=== PATIENT | female | born 1960 | race Caucasian/White ===

== ENCOUNTER → 2017-12-04 08:49 | Outpatient (CLI) | payer OTHER, SELFPAY ==
[2017-12-04 08:57] LABS: Bacteria 0 SEEN /hpf (None Seen); Mucous, Urine 0 SEEN /hpf (<or=2+)
--- NOTE | 2017-12-04 08:57 | EKG12_ITS ---
Test Reason : OP..RHYTHM Blood Pressure : / mmHG Vent. Rate : 082 BPM Atrial Rate : 082 BPM P-R Int : 124 ms QRS Dur : 076 ms QT Int : 372 ms P-R-T Axes : 039 017 047 degrees QTc Int : 434 ms Normal sinus rhythm Normal ECG Confirmed by JIAN SETH, DEYVI ([id number]), advertising editor JALIL SINGLETON ([id number]) on 12/06/2017 2:23:17 PM Referred By: Sudhir Roblero Confirmed By:DEYVI VILLAR MD
[2017-12-04 10:03] LABS: Color, Urine Yellow (Yellow); Glucose, Dipstick Normal (Normal); Ketone-Dipstick Negative (Negative); Leukocyte Esterase-Dipstick 25 /ul (Negative); Nitrite-Dipstick Negative (Negative); Occult Blood-Urine 10 /ul (Negative); Protein-Dipstick Negative (Negative); Specific Gravity, Urine 1.015 (1.002-1.030); Urine Bilirubin Dipstick Negative (Negative); Urine Clarity Clear (Clear); Urine Urobilinogen Normal (Normal)
[2017-12-04 10:13] LABS: Red Blood Cells-Urine 0-5 SEEN /hpf (0-5); Squamous Epithelial Cells - UA 0-5 SEEN /hpf (5-10); White Blood Cells 0-5 SEEN /hpf (0-5)
[2017-12-04 10:25] LABS: Anion Gap 6 (5-15); BUN 15 mg/dL (7-18); BUN/Creat Ratio 20.4 RATIO (10-20); Calcium,Total 9.3 mg/dL (8.5-10.1); Chloride 105 mmol/L (98-107); Cholesterol 203 mg/dL (200); Creatinine, Serum 0.74 mg/dL (0.55-1.02); EST Glomerular Filtration Rate 87 mL/min (>60); Est Glom Filt Rate - Afr Amer 105 mL/min (>60); Glucose 94 mg/dL (74-106); High Density Lipoprotein 88 mg/dL; Potassium 4.3 mmol/L (3.5-5.1); Sodium Level 141 mmol/L (136-145); Triglycerides 70 mg/dL; Very Low Density Lipoprotein 14 mg/dL (5-40)
[2017-12-04 10:34] LABS: Hemoglobin A1c 5.9 % (4.2-6.3)
[2017-12-04 10:40] LABS: Microalbumin,Random Urine 9.8 mg/L (NO RANGE EST.); Microalbumin:Creatinine Ratio 8.2 mg/g CRE (<30 mg/g CRE)
== END ==
PROVIDERS: Family Provider Internal Medicine; PCP Internal Medicine; Referring Provider Internal Medicine; Visit Provider Internal Medicine
DX: R07.9 Chest pain, unspecified (principal); R73.03 Prediabetes; N28.9 Disorder of kidney and ureter, unspecified
CPT/HCPCS: 36415; 80048; 80061; 81001; 82043; 82570; 83036; 93005

== ENCOUNTER → 2018-09-06 | Outpatient (CLI) | payer BC, SELFPAY ==
[2018-09-06 11:18] VITALS: BMI 30.1
[2018-09-06 12:49] LABS: Absolute Lymphocyte Count 1.25 X10^3/ul (0.83-4.51); Absolute Neutrophil Count 5.9 X10^3/uL (2.0-7.7); Basophil# 0.01 X10^3/uL; Basophil% 0.1 % (0-1); Eosinophil# 0.06 X10^3/uL; Eosinophils% 0.8 % (0-5); Hematocrit 40.6 % (37-47); Hemoglobin 12.9 g/dl (12.0-15.0); Lymphocyte # 1.25 X10^3/ul (4.0); Lymphocyte % 16.4 % (19-41); Mean Corp Hgb Conc 31.8 g/gl (32-36); Mean Corpuscular Hgb 28.4 pg (27.0-32.0); Mean Corpuscular Volume 89.4 fL (81-99); Mean Platelet Vol. 10.7 fl (6.2-12.0); Monocyte# 0.42 X10^3/uL; Monocyte% 5.5 % (0-10); Neutrophil # 5.86 X10^3/uL (2.7-7.7); Neutrophil % 76.8 % (47-70); Platelet Count 335 K/mm3 (150-450); RBC Distribution Width CV 13.6 % (11.6-14.6); RBC Distribution Width SD 43.5 fl (35.1-43.9); Red Blood Count 4.54 M/mm3 (4.2-5.4); White Blood Count 7.6 K/mm3 (4.4-11.0)
[2018-09-06 12:56] LABS: POSITIVE COUNT NO; POSITIVE DIFFERENTIAL NO; POSITIVE MORPHOLOGY NO
[2018-09-06 13:00] LABS: AST(SGOT) 18 U/L (15-37); Alanine Aminotransfer ALT/SGPT 30 U/L (13-56); Albumin, Serum 3.7 g/dL (3.2-5.0); Alkaline Phosphatase 101 U/L (45-117); BUN 17 mg/dL (7-18); BUN/Creat Ratio 21.5 RATIO (10-20); Calcium,Total 9.8 mg/dL (8.5-10.1); Chloride 104 mmol/L (98-107); Creatinine, Serum 0.79 mg/dL (0.55-1.02); EST Glomerular Filtration Rate 80 mL/min (>60); Est Glom Filt Rate - Afr Amer 96 mL/min (>60); Globulin 3.6 g/dL (2.2-4.2); Glucose 117 mg/dL (74-106); Potassium 4.7 mmol/L (3.5-5.1); Protein, Total 7.3 g/dL (6.4-8.2); Sodium Level 139 mmol/L (136-145)
[2018-09-06 13:01] LABS: Anion Gap 3 (5-15)
== END | disposition home or self-care (01) ==
LOC: BIMLAB 11:48
PROVIDERS: Family Provider Internal Medicine; PCP Internal Medicine; Visit Provider Internal Medicine
DX: R53.81 Other malaise (principal); B02.9 Zoster without complications
CPT/HCPCS: 36415; 80053; 85025

== ENCOUNTER → 2018-09-14 | Outpatient (CLI) | payer BC, SELFPAY ==
[2018-09-13 16:16] VITALS: BMI 30.1
[2018-09-14 09:53] LABS: Lyme Ab Screen Interpretation REF LAB
[2018-09-16 11:31] LABS: Lyme Scn Total Ab w/Rflx <0.91 ISR (0.00-0.90)
== END | disposition home or self-care (01) ==
LOC: BIMLAB 09:52
PROVIDERS: Family Provider Internal Medicine; PCP Internal Medicine; Visit Provider Family Medicine
DX: R21 Rash and other nonspecific skin eruption (principal)
CPT/HCPCS: 36415; 86618

== ENCOUNTER 2018-11-28 03:58 | Emergency (ER) | payer BC, SELFPAY ==
[2018-10-18 11:16] VITALS: BMI 30.1
[2018-11-28 04:00] VITALS: BP 166/64; PULSE 83; RESP 18; TEMP 36.9; O2SAT 98; BMI 33.3
[2018-11-28 04:06] VITALS: TEMP 36.9
--- NOTE | 2018-11-28 04:08 | ED.VIS.GEN ---
History of Present Illness Chief Complaint: Abd Pain Informant: Patient Onset: Yesterday Context: Gradual Onset Timing: Continuous Current Severity: Moderate Maximum Severity: Moderate Narrative: The patient presents to the emergency department with right upper quadrant abdominal pain, nausea, and vomiting. The patient states that she has a history of gallbladder problems. She states yesterday afternoon, she went with a friend. She states that she ate baked spaghetti and cheesecake. About 2 hours later, she began have pain in her right upper quadrant. Since then it is worsened. She states now into her right shoulder and across her abdomen. She describes chills and sweats. She is also been nauseated. She does have a history of prior hysterectomy, but denies any other abdominal surgery. The patient was recently treated for Lyme disease and was on antibiotics for a long period of time, but has been off of them for about 2 months. Prior similar symptoms: No Recent Illness/Hospitalization: No Past Medical History - Allergies and Home Meds Allergies/Adverse Reactions: Allergies levofloxacin [From Levaquin] Allergy (Unknown, Verified 11/28/18 03:59) Unknown morphine Allergy (Verified 11/28/18 03:59) Rash Primary Care Physician: Sudhir Roblero MD [Primary Care Provider] - Prior records reviewed: Yes Surgical History: hysterectomy Smoking Status: Never smoker Review of Systems General: Denies: Chills, Fever, Sweats Eyes: Denies: Visual changes - bilaterally, Diplopia ENT: Denies: Rhinorrhea, Sore throat Cardiovascular: Denies: Chest pain, Palpitations Respiratory: Denies: Dyspnea, Cough, Dyspnea on exertion Gastrointestinal: Reports: Abdominal pain, Nausea. Denies: Vomiting, Diarrhea, Melena, Hematochezia Genitourinary: Denies: Dysuria, Hematuria, Frequency Musculoskeletal: Denies: Back pain, Extremity Pain Skin: Denies: Rash, Wounds Neurological: Denies: Headache, Weakness, Numbness Physical Exam Vital Signs/Narrative: Vital Signs Temp Pulse Resp BP Pulse Ox 11/28/18 04:06 98.4 F 11/28/18 04:00 98.4 F 83 18 166/64 H 98 Inital Vital Signs reviewed: Yes General: Well nourished, Well developed, No Acute Distress Head: Normocephalic, Atraumatic Eyes: Perrl, EOMI ENT: Moist mucous membranes, No rhinorrhea Neck: Supple, Nontender Cardiovascular: Regular rate, Regular rhythm, No murmurs Respiratory: No distress, CTA bilaterally, Chest nontender Abdomen: Soft, Nondistended, Normal bowel sounds, Tender Back: Nontender, Normal Inspection Extremities: Nontender, No edema Skin: Normal color, No rash Neurological: Alert, Oriented x3, Cranial nerves II-XII grossly intact, Normal Strength, Normal Sensation Psychological: Normal affect, Normal Mood Diagnostic/Tx/Re-eval Clinical Impression(s) from Imaging Studies Abdomen/Pelvis CT 11/28/18 04:31 IMPRESSION: There is a cyst in the right kidney measures 1.4 cm. Electronically Signed: Guillermo Fry, at 5:14 EDT Tel , Service support , Abnormal Lab Results 11/28/18 11/28/18 11/28/18 04:05 04:05 04:47 WBC 9.3 RBC 4.44 Hgb 12.9 Hct 39.9 MCV 89.9 MCH 29.1 MCHC 32.3 RDW Std Deviation 41.2 RDW Coeff of Pepito 12.5 Plt Count 303 MPV 10.5 Immature Gran % (Auto) 0.200 Neut % (Auto) 81.0 H Lymph % (Auto) 12.5 L [place] % (Auto) 4.6 Eos % (Auto) 1.3 Baso % (Auto) 0.4 Absolute Neuts (auto) 7.5 Absolute Lymphs (auto) 1.16 Nucleated RBC % 0 Sodium 138 Potassium 4.2 Chloride 106 Carbon Dioxide 25.0 Anion Gap 7 BUN 14 Creatinine 0.82 Estim Creat Clear Calc 62.62 Est GFR (MDRD) Af Amer 93 Est GFR (MDRD) Non-Af 77 BUN/Creatinine Ratio 17.2 Glucose 146 H Calcium 9.6 Total Bilirubin 0.30 Direct Bilirubin 0.08 AST 21 ALT 28 Alkaline Phosphatase 100 Total Protein 7.4 Albumin 3.8 Globulin 3.6 Lipase 106 Urine Color Yellow Urine Clarity Clear Urine pH 5.0 Ur Specific [place] 1.025 Urine Protein Negative Urine Glucose (UA) Normal Urine Ketones 5 H Urine Occult Blood 25 H Urine Nitrite Negative Urine Bilirubin Negative Urine Urobilinogen Normal Ur Leukocyte Esterase 25 H Urine RBC 0 SEEN Urine WBC 0-5 SEEN Ur Squamous Epith Cells 25-50 SEEN Urine Bacteria 0 SEEN Urine Mucus 3+ - Medical Decision Making The patient symptoms do seem consistent with biliary colic. Her pain started after she ate cheesecake and a heavy meal. He does have some pain in the right upper quadrant but no definitive Pappas sign. IV was established. She was given analgesics and antiemetics. Her pain was markedly improved. Screening labs including LFTs are relatively unremarkable. Her urine does not show evidence of infection. I did obtain a CT of abdomen and pelvis. There was no evidence of acute intra-abdominal process. On reevaluation, the patient is pain-free. She has had these bouts with increasing frequency and duration. I do feel that outpatient surgical follow-up would be appropriate. The patient is already established with Dr. Robles. She will be given analgesics and antiemetics and will follow-up as an outpatient. She was counseled on concerning symptoms and reasons to return. Impression 1. Biliary colic ED Disposition - Plan for ED Patient: Instructions: BILIARY COLIC with Gallstone (Confirmed) Prescriptions: Hydrocodone Bitart/Apap 5-325 [[place] 5MG-325MG] 1 tab PO Q6H PRN PRN 3 Days #10 tab PRN Reason: Pain Prescription Printed Ondansetron [Zofran Odt] 4 mg PO Q8H PRN PRN #10 tab PRN Reason: Nausea Prescription Printed Referrals: Lorena Robles MD [STAFF PHYSICIAN] -
[2018-11-28] MEDS: Ketorolac 30 MG/ML Syringe IV (04:15)
[2018-11-28] MEDS: 0.9% Normal Saline 1,000 ML 1000 ML IV (04:15)
[2018-11-28] MEDS: fentaNYL 100 MCG/2 ML Ampul 25 MCG IV (04:15)
[2018-11-28] MEDS: Ondansetron 4 MG/2 ML Vial IV (04:15)
[2018-11-28 04:18] LABS: Absolute Lymphocyte Count 1.16 X10^3/uL (0.83-4.51); Absolute Neutrophil Count 7.5 X10^3/uL (2.0-7.7); Basophil# 0.04 X10^3/uL; Basophil% 0.4 % (0-1); Eosinophil# 0.12 X10^3/uL; Eosinophils% 1.3 % (0-5); Hematocrit 39.9 % (37-47); Hemoglobin 12.9 g/dL (12.0-15.0); Lymphocyte # 1.16 X10^3/ul (4.0); Lymphocyte % 12.5 % (19-41); Mean Corp Hgb Conc 32.3 g/dL (32-36); Mean Corpuscular Hgb 29.1 pg (27.0-32.0); Mean Corpuscular Volume 89.9 fL (81-99); Mean Platelet Vol. 10.5 fl (6.2-12.0); Monocyte# 0.43 X10^3/uL; Monocyte% 4.6 % (0-10); NRBC Flagged by Analyzer 0 % (0-5); Neutrophil # 7.49 X10^3/uL (2.7-7.7); Platelet Count 303 K/mm3 (150-450); RBC Distribution Width CV 12.5 % (11.6-14.6); RBC Distribution Width SD 41.2 fl (35.1-43.9); Red Blood Count 4.44 M/mm3 (4.2-5.4); White Blood Count 9.3 K/mm3 (4.4-11.0)
[2018-11-28 04:31] LABS: AST(SGOT) 21 U/L (15-37); Alanine Aminotransfer ALT/SGPT 28 U/L (13-56); Albumin, Serum 3.8 g/dL (3.2-5.0); Alkaline Phosphatase 100 U/L (45-117); Anion Gap 7 (5-15); BUN 14 mg/dL (7-18); BUN/Creat Ratio 17.2 RATIO (10-20); Bilirubin, Direct 0.08 mg/dL (0.00-0.30); Calcium,Total 9.6 mg/dL (8.5-10.1); Chloride 106 mmol/L (98-107); Creatinine, Serum 0.82 mg/dL (0.55-1.02); EST Glomerular Filtration Rate 77 mL/min (>60); Est Glom Filt Rate - Afr Amer 93 mL/min (>60); Estimated Creatinine Clearance 62.62 ml/min; Globulin 3.6 g/dL (2.2-4.2); Glucose 146 mg/dL (74-106); Lipase 106 U/L (73-393); Potassium 4.2 mmol/L (3.5-5.1); Protein, Total 7.4 g/dL (6.4-8.2); Sodium Level 138 mmol/L (136-145)
--- NOTE | 2018-11-28 04:31 | CT_ITS ---
STUDY: CT ABDOMEN AND PELVIS WITH CONTRAST REASON FOR EXAM: Female, 58 years old. Right upper quadrant pain RADIATION DOSAGE (If Supplied By Facility): CTDIvol = ( 16.04 ) mGy, DLP = ( 1062.59 ) mGycm TECHNIQUE: Transaxial images were obtained from the dome of the diaphragm to the symphysis pubis without oral contrast. IV 100mL Isovue-300 100ML was administered. Sagittal and coronal images were reconstructed. Individualized dose optimization techniques were used for this CT. COMPARISON: None. FINDINGS: The visualized lung bases are unremarkable. The visualized portions of the heart are within normal limits. Normal liver. Normal gallbladder and extrahepatic biliary system. Normal spleen. Normal pancreas. Normal bilateral adrenal glands. There is a cyst in the right kidney measures 1.4 cm. Normal left kidney. Normal visualized stomach. Normal small intestine. Normal colon. The appendix is visualized and appears normal. Normal abdominal aorta. Normal inferior vena cava. Normal retroperitoneum. Normal urinary bladder. Normal abdominal wall. Normal osseous structures. CT/Abdomen/Pelvis W IV Cont ONLY IMPRESSION: There is a cyst in the right kidney measures 1.4 cm. Electronically Signed: Guillermo Fry, at 5:14 EDT Tel , Service support ,
[2018-11-28 04:55] LABS: Bacteria 0 SEEN /hpf (None Seen); Red Blood Cells-Urine 0 SEEN /hpf (0-5)
[2018-11-28 04:56] LABS: Color, Urine Yellow (Yellow); Glucose, Dipstick Normal (Normal); Ketone-Dipstick 5 mg/dl (Negative); Leukocyte Esterase-Dipstick 25 /ul (Negative); Nitrite-Dipstick Negative (Negative); Occult Blood-Urine 25 /ul (Negative); Protein-Dipstick Negative (Negative); Specific Gravity, Urine 1.025 (1.002-1.030); Urine Bilirubin Dipstick Negative (Negative); Urine Clarity Clear (Clear); Urine Urobilinogen Normal (Normal)
[2018-11-28 05:08] VITALS: BP 158/62; PULSE 88; RESP 16; TEMP 37; O2SAT 96
[2018-11-28 05:22] LABS: Squamous Epithelial Cells - UA 25-50 SEEN /hpf (5-10); White Blood Cells 0-5 SEEN /hpf (0-5)
[2018-11-28 05:23] LABS: Mucous, Urine 3+ /hpf (<or=2+)
[2018-11-28 05:37] VITALS: BP 158/72; PULSE 76; RESP 16; O2SAT 97
== END 2018-11-28 05:37 | disposition home or self-care (01) ==
PROVIDERS: Emergency Provider Emergency Medicine; Family Provider Internal Medicine; PCP Internal Medicine
DX: K80.50 Calculus of bile duct without cholangitis or cholecystitis without obstruction (principal); N28.1 Cyst of kidney, acquired; Z86.19 Personal history of other infectious and parasitic diseases
CPT/HCPCS: 74177; 80048; 80076; 81001; 83690; 85025; 96361; 96374; 96375; 99284; J7030; Q9967; A4216; J2405

== ENCOUNTER 2018-12-02 05:24 | Observation (INO) | payer BC, SELFPAY ==
[2018-12-02] VITALS (13 sets, daily range): BP systolic 113–158; BP diastolic 38–92; PULSE 69–85; RESP 12–18; TEMP 36.4–37.2; O2SAT 95–100; BMI 32.1; BMI 31.8; BMI 31.9
--- NOTE | 2018-12-02 05:42 | RAD_ITS ---
STUDY: X-RAY CHEST REASON FOR EXAM: Female, 58 years old. Epigastric pain. Right upper quadrant pain. TECHNIQUE: Frontal and lateral views of the chest. COMPARISON: None. FINDINGS: The lungs are clear and expanded. There is no demonstrated pleural abnormality. Normal size heart. Normal mediastinum and mina. Normal visualized pulmonary arteries. Normal visualized aortic arch and descending thoracic aorta. Normal visualized thoracic spine. Normal visualized ribs, clavicles, and shoulders. There is no demonstrated abnormality of the visualized soft tissue structures of the upper abdomen. RAD/Chest PA and Lateral IMPRESSION: Normal x-ray examination of the chest. Electronically Signed: Guillermo Fry, at 7:04 EDT Tel , Service support ,
--- NOTE | 2018-12-02 05:42 | EKG12_ITS ---
Test Reason : Blood Pressure : / mmHG Vent. Rate : 081 BPM Atrial Rate : 081 BPM P-R Int : 146 ms QRS Dur : 078 ms QT Int : 386 ms P-R-T Axes : 048 014 049 degrees QTc Int : 448 ms Normal sinus rhythm Normal ECG When compared with ECG of 04-DEC-2017 09:18, No significant change was found Confirmed by JIAN SETH, DEYVI ([id number]), editor & co founder ASAF HANNA ([id number]) on 12/26/2018 11:23:40 AM Referred By: ANGELLA Confirmed By:DEYVI VILLAR MD
--- NOTE | 2018-12-02 05:42 | US_ITS ---
STUDY: ABDOMINAL ULTRASOUND - RIGHT UPPER QUADRANT REASON FOR VISIT: Female, 58 years old 5 day history of right upper quadrant pain. TECHNIQUE: Ultrasound evaluation of the right upper quadrant was performed with real-time and static pugh-scale imaging. TECHNICAL QUALITY: Adequate. COMPARISON: Comparison is made with prior CT scan of the abdomen dated November 28, 2018. FINDINGS: Liver: The liver measures 17.0 cm. There is normal echogenicity of the liver. The bile ducts are within normal limits. There is hepatic color flow. The direction of portal flow is hepatopetal. There is no demonstrated mass lesion. Gallbladder: There is a contracted stone filled gallbladder. The gallbladder wall measures 4.0 mm. There is a positive sonographic Pappas's sign. There is no pericholecystic fluid. Common Bile Duct (C.B.D.): The common bile duct measures 8.3 mm. Pancreas: Normal size of the head, body and tail of the pancreas. There is normal echogenicity of the pancreas. There is no demonstrated pancreatic mass or cyst. Right Kidney: Normal size of the right kidney. The right kidney measures 11.2 cm x 5.3 cm x 5.4 cm. Normal renal cortex. The right cortex measures 1.4 cm. There is a 1.3 cm x 1.1 cm x 1.0 cm cyst. There is no right hydronephrosis. US/Gallbladder IMPRESSION: There is evidence of a contracted stone filled gallbladder with mild thickening of the gallbladder wall and slight dilatation of the common bile duct. Electronically Signed: Ignacio Jones, at 8:31 EDT , Service support ,
--- NOTE | 2018-12-02 05:45 | ED.DCSUM_ITS ---
History of Present Illness Chief Complaint: Abd Pain Narrative: Patient is a 58-year-old female who presents with abdominal pain. She complains of epigastric and lower chest pain with radiation through to the back and shoulder blade. Her current episode began just shortly before presentation. She has actually had similar intermittent pain for years although this has recently become more severe. She was seen in the emergency department several days ago. She was diagnosed with biliary colic. CT of the abdomen and pelvis was normal, there was no comment of gallstones on that study but patient has not had an ultrasound. She did follow-up with general surgery as an outpatient and is scheduled for cholecystectomy on the of this month. She also complains of feeling short of breath this morning. She describes the pain as pressure like coming in waves. She denies fever. She complains of nausea without vomiting. No diarrhea. She has had a previous hysterectomy and had C-sections before this. No other abdominal surgeries. Past Medical History - Allergies and Home Meds Allergies/Adverse Reactions: Allergies levofloxacin [From Levaquin] Allergy (Unknown, Verified 11/28/18 03:59) Unknown morphine Allergy (Verified 11/28/18 03:59) Rash Primary Care Physician: Sudhir Roblero MD [Primary Care Provider] - Past Medical History: - - Noncontributory Surgical History: hysterectomy Smoking Status: Never smoker Review of Systems All systems negative except as indicated General: Denies: Fever Cardiovascular: Reports: Chest pain Respiratory: Reports: Dyspnea Gastrointestinal: Reports: Abdominal pain, Nausea. Denies: Vomiting, Diarrhea Physical Exam Vital Signs/Narrative: Vital Signs Temp Pulse Resp BP Pulse Ox 12/02/18 05:25 98.9 F 85 18 142/56 H 95 Inital Vital Signs reviewed: Yes General: Well nourished, Well developed Head: Normocephalic Eyes: EOMI ENT: Moist mucous membranes Neck: Supple Cardiovascular: Regular rate, Regular rhythm Respiratory: No distress, CTA bilaterally Abdomen: Soft, - - Patient has mid epigastric abdominal tenderness she does not have guarding or rebound she does not have a Pappas's sign Skin: Normal color Neurological: Alert Psychological: Normal affect Diagnostic/Tx/Re-eval 12/02/18 05:42 CXR [Chest PA and Lateral] [RAD] Stat Gallbladder [US] Stat Laboratory Results 12/02/18 12/02/18 05:35 05:35 WBC 5.7 RBC 4.90 Hgb 14.0 Hct 44.2 MCV 90.2 MCH 28.6 MCHC 31.7 L RDW Std Deviation 41.5 RDW Coeff of Pepito 12.6 Plt Count 326 MPV 10.6 Immature Gran % (Auto) 0.200 Neut % (Auto) 51.4 Lymph % (Auto) 36.0 [place] % (Auto) 8.0 Eos % (Auto) 3.9 Baso % (Auto) 0.5 Absolute Neuts (auto) 2.9 Absolute Lymphs (auto) 2.04 Nucleated RBC % 0 Sodium 141 Potassium 4.7 Chloride 105 Carbon Dioxide 28.0 Anion Gap 8 BUN 16 Creatinine 0.88 Estim Creat Clear Calc 58.35 Est GFR (MDRD) Af Amer 85 Est GFR (MDRD) Non-Af 70 BUN/Creatinine Ratio 18.1 Glucose 117 H Calcium 9.8 Total Bilirubin 0.60 AST 45 H ALT 37 Alkaline Phosphatase 97 Total Protein 7.8 Albumin 4.0 Globulin 3.8 Albumin/Globulin Ratio 1.1 Lipase 99 - Medical Decision Making Patient was treated with IV fluids, Toradol, Zofran. I attempted [id number] ultrasound but was unable to obtain adequate images of the gallbladder. Laboratory studies as above unremarkable. EKG shows sinus rhythm at a rate of 81 with no acute ischemic changes. Two-view chest x-ray on my review shows no acute process, right upper quadrant ultrasound pending. If this does not show acute cholecystitis patient can likely be discharged to follow-up as an outpatient. ED Disposition - Plan for ED Patient: Disposition: Home or Assisted Living Diagnosis: Biliary colic Instructions: BILIARY COLIC with Gallstone (Confirmed) Referrals: uSdhir Roblero MD [Primary Care Provider] - Lorena Robles MD [STAFF PHYSICIAN] -
[2018-12-02 05:48] LABS: Absolute Lymphocyte Count 2.04 X10^3/uL (0.83-4.51); Absolute Neutrophil Count 2.9 X10^3/uL (2.0-7.7); Basophil# 0.03 X10^3/uL; Basophil% 0.5 % (0-1); Eosinophil# 0.22 X10^3/uL; Eosinophils% 3.9 % (0-5); Hematocrit 44.2 % (37-47); Lymphocyte # 2.04 X10^3/ul (4.0); Mean Corp Hgb Conc 31.7 g/dL (32-36); Mean Corpuscular Hgb 28.6 pg (27.0-32.0); Mean Corpuscular Volume 90.2 fL (81-99); Mean Platelet Vol. 10.6 fl (6.2-12.0); Monocyte# 0.45 X10^3/uL; NRBC Flagged by Analyzer 0 % (0-5); Neutrophil # 2.91 X10^3/uL (2.7-7.7); Neutrophil % 51.4 % (47-70); Platelet Count 326 K/mm3 (150-450); RBC Distribution Width CV 12.6 % (11.6-14.6); RBC Distribution Width SD 41.5 fl (35.1-43.9); White Blood Count 5.7 K/mm3 (4.4-11.0)
[2018-12-02 06:09] LABS: ALB/GLOB Ratio 1.1 RATIO (0.9-2.4); AST(SGOT) 45 U/L (15-37); Alanine Aminotransfer ALT/SGPT 37 U/L (13-56); Alkaline Phosphatase 97 U/L (45-117); Anion Gap 8 (5-15); BUN 16 mg/dL (7-18); BUN/Creat Ratio 18.1 RATIO (10-20); Calcium,Total 9.8 mg/dL (8.5-10.1); Chloride 105 mmol/L (98-107); Creatinine, Serum 0.88 mg/dL (0.55-1.02); EST Glomerular Filtration Rate 70 mL/min (>60); Est Glom Filt Rate - Afr Amer 85 mL/min (>60); Estimated Creatinine Clearance 58.35 ml/min; Globulin 3.8 g/dL (2.2-4.2); Glucose 117 mg/dL (74-106); Lipase 99 U/L (73-393); Potassium 4.7 mmol/L (3.5-5.1); Protein, Total 7.8 g/dL (6.4-8.2); Sodium Level 141 mmol/L (136-145)
[2018-12-02] MEDS: Ketorolac 30 MG/ML Syringe IV (06:29)
[2018-12-02] MEDS: Ondansetron 4 MG/2 ML Vial IV (06:29)
[2018-12-02] MEDS: 0.9% Normal Saline 1,000 ML 1000 ML IV (06:29)
--- NOTE | 2018-12-02 10:41 | HP.PCM_ITS ---
Problem List (1) Cholelithiasis Status: Acute Qualifiers: Cholelithiasis location: gallbladder Cholecystitis presence: without cholecystitis Biliary obstruction: without biliary obstruction Qualified Code(s): K80.20 - Calculus of gallbladder without cholecystitis without obstruction History of Present Illness Date of Admission: 12/02/18 The patient is a 58 year old F presented this morning to the emergency room with epigastric and right upper quadrant pain radiating to the back. She reports that this is the second episode of this that has brought her to the emergency room. She did have nausea but no vomiting. She is not having any fevers or chills. She was scheduled for elective cholecystectomy later this month with Dr. Robles for her gallstones. Past Medical History Past Medical History (Chronic Problems): Chronic Problems (Last Reviewed 10/18/18 @ 11:16 by Kasie Hammer) Rash (Chronic) Hypertension (Chronic) Kidney disorder (Chronic) Borderline type 2 diabetes mellitus (Chronic) Depression (Chronic) Neuropathy (Chronic) Asthma (Chronic) Arthritis (Chronic) Medical History: Medical History (Last Reviewed 10/18/18 @ 11:16 by Kasie Hammer) Depression (Chronic) F32.9 Neuropathy (Chronic) G62.9 Asthma (Chronic) J45.909 Severe headache (Acute) R51 Hay fever (Acute) J30.1 Anemia (Acute) D64.9 Stomach ulcer (Acute) K25.9 Diabetes (Acute) E11.9 Arthritis (Chronic) M19.90 Hemorrhoids K64.9 History of hysterectomy Z90.710 Allergies levofloxacin [From Levaquin] Allergy (Unknown, Verified 11/28/18 03:59) Unknown morphine Allergy (Verified 11/28/18 03:59) Rash Home Medications: Ambulatory Orders Medication Instructions Recorded albuterol sulfate HFA 90 1 puff INHALATION Q6H PRN #8.5 g 05/21/17 mcg/actuation aerosol inhaler loratadine 10 mg tablet 10 mg PO QDAY 05/21/17 Hydrocodone Bitart/Apap 5-325 1 tab PO Q6H PRN PRN 3 Days #10 tab 11/28/18 [[place] 5MG-325MG] Ondansetron [Zofran Odt] 4 mg PO Q8H PRN PRN #10 tab 11/28/18 Surgical History: Surgical History (Last Reviewed 10/18/18 @ 11:16 by Kasie Hammer) History of delivery Z98.891 History of elbow surgery Z98.890 history of ganglion wrist surgery history of right hand surgery Surgical History: hysterectomy Smoking Status: Never smoker Review of Systems Constitutional: Reports: Anorexia. Denies: Fever Eyes: Denies: Blurred vision HEENT: Denies: Difficulty Swallowing Cardiovascular: Denies: Chest Pain Respiratory: Denies: Cough, Shortness of Breath Gastrointestinal: Reports: Abdominal Pain, Nausea. Denies: Diarrhea, Hemat emesis, Hematochezia, Vomiting Genitourinary: Denies: Dysuria Musculoskeletal: Denies: Joint Tenderness Skin: Denies: Dryness, Jaundice Psychiatric: Denies: Anxiety Hematologic/ Lymphatic: Denies: Anemia VTE Information - Inpt Only VTE Present on Admission: No VTE Mechan Device Prophylaxis: SCD's Patient Problems: Active and Suspected Problems (Last Reviewed 10/18/18 @ 11:16 by Kasie Hammer) Biliary colic (Acute) Cholelithiasis (Acute) - Physical Exam General: Alert, Oriented x3 HEENT: Atraumatic Neck: No JVD Lungs: Normal air movement Cardiovascular: Regular rate, Regular Rhythm Abdomen: Soft, Tender - Tender in the right upper quadrant Extremities: No clubbing, No cyanosis Musculoskeletal: No Muscle Wasting Lymphatic: No Cervical, Supraclavicular, or Inguinal Adenopathy Neurological: Cranial nerves II-XII grossly intact Psych/Mental Status: Normal Affect Vital Signs Temp Pulse Resp BP Pulse Ox 98.9 F 85 12 113/38 L 99 12/02/18 05:25 12/02/18 09:10 12/02/18 09:10 12/02/18 09:10 12/02/18 09:10 Oxygen Delivery Method Room Air Weight: 180 lb Body Mass Index (BMI) 31.8 Intake and Output for Last 24 Hours 11/30/18 12/01/18 12/02/18 23:59 23:59 23:59 Intake Total 1000 / 1000 Balance 1000 / 1000 Laboratory Tests Past 24 Hrs 12/02/18 12/02/18 05:35 05:35 WBC 5.7 RBC 4.90 Hgb 14.0 Hct 44.2 MCV 90.2 MCH 28.6 MCHC 31.7 L RDW Std Deviation 41.5 RDW Coeff of [place] 12.6 Plt Count 326 MPV 10.6 Immature Gran % (Auto) 0.200 Neut % (Auto) 51.4 Lymph % (Auto) 36.0 [place] % (Auto) 8.0 Eos % (Auto) 3.9 Baso % (Auto) 0.5 Absolute Neuts (auto) 2.9 Absolute Lymphs (auto) 2.04 Nucleated RBC % 0 Sodium 141 Potassium 4.7 Chloride 105 Carbon Dioxide 28.0 Anion Gap 8 BUN 16 Creatinine 0.88 Estim Creat Clear Calc 58.35 Est GFR (MDRD) Af Amer 85 Est GFR (MDRD) Non-Af 70 BUN/Creatinine Ratio 18.1 Glucose 117 H Calcium 9.8 Total Bilirubin 0.60 AST 45 H ALT 37 Alkaline Phosphatase 97 Total Protein 7.8 Albumin 4.0 Globulin 3.8 Albumin/Globulin Ratio 1.1 Lipase 99 Clinical Impression(s) from Imaging Studies Chest X-Ray 12/02/18 05:42 IMPRESSION: Normal x-ray examination of the chest. Electronically Signed: Guillermo Fry, at 7:04 EDT Tel , Service support , Gallbladder Ultrasound 12/02/18 05:42 IMPRESSION: There is evidence of a contracted stone filled gallbladder with mild thickening of the gallbladder wall and slight dilatation of the common bile duct. Electronically Signed: Ignacio Jones, at 8:31 EDT , Service support , Assessment/Plan All Active Problems (Last Reviewed 10/18/18 @ 11:16 by Kasie Hammer) Biliary colic (Acute) Cholelithiasis (Acute) Sinusitis, acute (Acute) Severe headache (Acute) Hay fever (Acute) Anemia (Acute) Stomach ulcer (Acute) Diabetes (Acute) 58-year-old female with cholelithiasis and biliary colic 1. This is the second episode of biliary colic which is brought her to the emergency room. Patient had normal labs and ultrasound showed a contracted gallbladder around multiple stones with slight wall thickening. There is also slight dilation of the common bile duct. I offered the patient laparoscopic cholecystectomy with cholangiogram and she would like to proceed today. 2. I discussed the procedure in detail with the patient. I discussed the risks, benefits, and alternatives of the procedure. I discussed the risks including but not limited to bleeding, infection, injury to surrounding organs such as the liver, bile duct, bowels. I did discuss the possibility of having to convert to an open procedure as well as the possibility that if any injuries occurred this may necessitate further surgery at a tertiary care center. German Torres MD Pager: [facility] [address] [place] [address] [address] [place] [address] Office:
[2018-12-02] MEDS: 0.9% Normal Saline 1,000 ML 100 ML IV ×2 (10:51→22:15)
--- NOTE | 2018-12-02 12:56 | NURSING ---
verbal report given to shorty hdz on ac
[2018-12-02 14:08] LABS: Bacteria 0 SEEN /hpf (None Seen); Red Blood Cells-Urine 0 SEEN /hpf (0-5)
[2018-12-02 14:09] LABS: Color, Urine Yellow (Yellow); Glucose, Dipstick Normal (Normal); Ketone-Dipstick Negative (Negative); Leukocyte Esterase-Dipstick 100 /ul (Negative); Nitrite-Dipstick Negative (Negative); Occult Blood-Urine Negative /ul (Negative); Protein-Dipstick Negative (Negative); Urine Bilirubin Dipstick Negative (Negative); Urine Clarity Sl. Cloudy (Clear); Urine Urobilinogen Normal (Normal)
[2018-12-02 14:15] LABS: Mucous, Urine 1+ /hpf (<or=2+); Squamous Epithelial Cells - UA 0-5 SEEN /hpf (5-10); White Blood Cells 10-25 SEEN /hpf (0-5)
--- NOTE | 2018-12-02 14:30 | GALL_PTH ---
PATIENT: JOSE CABRERA LOC: PCU U#:[id number] AGE/SX: 58/F ROOM: [facility] RE12/02/[address]: Dr. German Torres MD : [id number] BED: 1 DIS: 12/03/2018 SPEC #: [id number] RECD: 12/02/18 16:04 STATUS: DALE JORGE #: [id number] JUAN: 12/02/18 14:[address]: German Torres DEPT: SURGICAL PATHOLOGY RECD BY: Laverne Shore ENTERED: 12/05/18 09:48 SP TYPE: NHI DUONG DR: Dr. Sudhir Roblero MD Tissues: Gallbladder, NOS Procedures: Surgery Specimen Level III HEADER OPERATION: Laparoscopic, cholecystectomy with IOC PRE-OP DIAGNOSIS: Cholelithiasis and biliary colic TISSUE SUBMITTED: Gallbladder MICROSCOPIC DIAGNOSIS Gallbladder, cholecystectomy: Chronic cholecystitis and cholelithiasis. Benign pericystic lymph node. AM:benito 12/06/18 MICROSCOPIC DESCRIPTION Slides are reviewed. GROSS DESCRIPTION Received is one container labeled with the patient's name and designated gallbladder. The specimen consists of a gallbladder measuring 8.5 cm in length and up to 3 cm in diameter. The external surface is pink-erazo, smooth and glistening for the most part. Focally it is granular, hemorrhagic and contains cautery artifact. The gallbladder contains a small amount of yellowish mucoid bile and multiple multifaceted orange-yellow stones measuring in aggregate 6 x 5 x 2.5 cm and 0.2 to 1 cm in greatest dimension. The mucosa is bile-stained and without any mass lesions. The gallbladder wall measures up to 0.3 cm in thickness. Property Coordinator sections from the gallbladder and the cystic duct are submitted in one cassette. / SJ:benito 12/05/18 TC:3 CPT: 59830
--- NOTE | 2018-12-02 14:30 | RAD_ITS ---
CLINICAL HISTORY: Female, 58 years old. Cholelithiasis. PROCEDURE: CHOLANGIOGRAM - intraoperative FLUOROSCOPY TIME (if supplied): (0.23) minutes. TECHNIQUE: 155 procedural images were presented for interpretation COMPARISON: Gallbladder ultrasound, December 02, 2018. FINDINGS: Study demonstrates cannulization of the cystic duct stump with injection of contrast. Contrast fills the intra and extrahepatic bile ducts without filling defect. There is mild dilatation of the CBD. There is free spillage of contrast into the duodenum. Please refer to the operative report for further details RAD/Cholangiogram/ O R,Initial IMPRESSION: Interoperative cholangiogram, as above. Electronically Signed: Thaddeus Montgomery DO at 16:04 EDT Tel [phone], Service support ,
--- NOTE | 2018-12-02 16:04 | PCM.OPRPT ---
Problem List (1) Cholelithiasis Status: Acute Qualifiers: Cholelithiasis location: gallbladder Cholecystitis presence: without cholecystitis Biliary obstruction: without biliary obstruction Qualified Code(s): K80.20 - Calculus of gallbladder without cholecystitis without obstruction Report of Operation Date of Procedure: 12/02/18 Pre-Operative Diagnosis: Cholelithiasis and biliary colic Post-Operative Diagnosis: Same Surgery/Procedure Performed:: Laparoscopic cholecystectomy with cholangiogram Specimen's removed: Gallbladder and contents Description of Procedure: After obtaining informed consent patient was brought back to the operating room. General anesthesia was induced. The abdomen was prepped and draped in usual sterile fashion. A small midline incision was made superior to the umbilicus and deepened to the level of fascia. The fascia was elevated and incised. Next the peritoneum was elevated and incised in the same fashion. Finger sweep was performed and the Li trocar was placed into the abdomen. The balloon was inflated. The abdomen was inflated to 15 mmHg. Next a camera was introduced into the abdomen and the abdomen was inspected. Next under direct visualization three 5-mm ports were placed one subxiphoid and 2 subcostal. Next the gallbladder was elevated and retracted toward the right shoulder. The peritoneum was stripped from the gallbladder. The infundibulum was located and retracted laterally. Next the triangle of Calot was dissected and the cystic duct and cystic artery were identified. Cholangiograms were performed. The cystic duct was clipped proximally and a small janet was made in the cystic duct. Next janet was made in the anterior right upper quadrant of the skin and a Ranfac catheter was placed through the skin into the abdomen. The Ranfac was placed into the cystic duct and clip was placed over this. It flushed nicely. Cholangiogram's were performed and there was good filling of the duodenum with no filling defect. Next the clip was removed as well as the Ranfac. 2 clips were placed in the distal cystic duct and the cystic duct was divided. The cystic artery was clipped and divided in the same fashion. The hook cautery was then used to take the gallbladder off of the gallbladder bed. Hemostasis was obtained. Gallbladder fossa was irrigated and no active bleeding or bile leakage was noted. Next the camera switched to a 5 mm camera and introduced in the subxiphoid port. An Endopouch bag was placed through the umbilical port and the gallbladder was placed into it. The gallbladder was then removed through the umbilical incision. The camera was then reinserted through the umbilical port. The gallbladder fossa was inspected once more and noted to be hemostatic with no leaking bile. The abdomen was suctioned dry. The 5 mm ports were removed under direct visualization. The umbilical port was then removed and the air was removed from the abdomen. Next using an 0 Vicryl suture the umbilical fascia was closed in a [id number] fashion. The umbilical port site was irrigated local anesthetic was administered to all the incisions. All the incisions were closed with interrupted subcuticular 4-0 Monocryl sutures followed by Steri-Strips and dressings. The patient was awoken and taken to PACU in stable condition. - Admit VTE Documentation VTE Mechan Device Prophylaxis: SCD's
[2018-12-02] MEDS: Lactated Ringers 1,000 ML 100 ML IV (16:47)
[2018-12-02] MEDS: Acetaminophen 325 MG Tablet 650 MG PO (22:15)
[2018-12-03 04:00] VITALS: BP 111/42; PULSE 60; RESP 16; TEMP 37; O2SAT 94
[2018-12-03] MEDS: Lactated Ringers 1,000 ML 100 ML IV (04:36)
[2018-12-03 07:24] LABS: Absolute Lymphocyte Count 0.67 X10^3/uL (0.83-4.51); Absolute Neutrophil Count 7.1 X10^3/uL (2.0-7.7); Basophil# 0.01 X10^3/uL; Basophil% 0.1 % (0-1); Eosinophil# 0.14 X10^3/uL; Eosinophils% 1.7 % (0-5); Hematocrit 36.4 % (37-47); Hemoglobin 11.8 g/dL (12.0-15.0); Lymphocyte # 0.67 X10^3/ul (4.0); Mean Corp Hgb Conc 32.4 g/dL (32-36); Mean Corpuscular Hgb 28.9 pg (27.0-32.0); Mean Platelet Vol. 9.9 fl (6.2-12.0); Monocyte# 0.46 X10^3/uL; Monocyte% 5.5 % (0-10); NRBC Flagged by Analyzer 0 % (0-5); Neutrophil # 7.06 X10^3/uL (2.7-7.7); Neutrophil % 84.3 % (47-70); POSITIVE MORPHOLOGY YES; Platelet Count 294 K/mm3 (150-450); RBC Distribution Width CV 12.4 % (11.6-14.6); Red Blood Count 4.09 M/mm3 (4.2-5.4); White Blood Count 8.4 K/mm3 (4.4-11.0)
[2018-12-03 07:25] LABS: Differential Indicated SCAN CRITERIA MET
[2018-12-03 07:40] LABS: Anion Gap 3 (5-15); BUN 10 mg/dL (7-18); BUN/Creat Ratio 14.8 RATIO (10-20); Calcium,Total 8.8 mg/dL (8.5-10.1); Chloride 109 mmol/L (98-107); Creatinine, Serum 0.68 mg/dL (0.55-1.02); EST Glomerular Filtration Rate 95 mL/min (>60); Est Glom Filt Rate - Afr Amer 115 mL/min (>60); Estimated Creatinine Clearance 75.51 ml/min; Glucose 119 mg/dL (74-106); Potassium 4.1 mmol/L (3.5-5.1); Sodium Level 140 mmol/L (136-145)
[2018-12-03] MEDS: Acetaminophen 325 MG Tablet 650 MG PO (08:11)
[2018-12-03 08:14] VITALS: BP 120/49; PULSE 83; RESP 14; TEMP 36.9; O2SAT 96
--- NOTE | 2018-12-03 08:55 | PN.SURG_ITS ---
Patient Problems: Active and Suspected Problems (Last Reviewed 10/18/18 @ 11:16 by Kasie Hammer) Biliary colic (Acute) Cholelithiasis (Acute) Subjective: Patient tolerating diet with no nausea or vomiting. Pain is very tolerable on p.o. meds. - Physical Exam General: Alert, Oriented x3 Neck: No JVD Lungs: Normal air movement Cardiovascular: Regular rate, Regular Rhythm Abdomen: Soft, Non Tender, Non-Distended Vital Signs Temp Pulse Resp BP Pulse Ox 98.5 F 83 14 120/49 L 96 12/03/18 08:14 12/03/18 08:14 12/03/18 08:14 12/03/18 08:14 12/03/18 08:14 Oxygen Flow Rate (L/min) 2 Oxygen Delivery Method Room Air Weight: 180 lb Body Mass Index (BMI) 31.8 Intake and Output for Last 24 Hours 12/01/18 12/02/18 12/03/18 23:59 23:59 23:59 Intake Total 2898.33 / 2898.33 685 / 685 Output Total 0 / 0 Balance 2898.33 / 2898.33 685 / 685 Laboratory Tests Past 24 Hrs 12/02/18 12/03/18 12/03/18 11:32 07:10 07:10 WBC 8.4 RBC 4.09 L Hgb 11.8 L Hct 36.4 L MCV 89.0 MCH 28.9 MCHC 32.4 RDW Std Deviation 40.0 RDW Coeff of Pepito 12.4 Plt Count 294 MPV 9.9 Immature Gran % (Auto) 0.400 Neut % (Auto) 84.3 H Lymph % (Auto) 8.0 L Poinsett % (Auto) 5.5 Eos % (Auto) 1.7 Baso % (Auto) 0.1 Absolute Neuts (auto) 7.1 Absolute Lymphs (auto) 0.67 L Nucleated RBC % 0 Sodium 140 Potassium 4.1 Chloride 109 H Carbon Dioxide 28.0 Anion Gap 3 L BUN 10 Creatinine 0.68 Estim Creat Clear Calc 75.51 Est GFR (MDRD) Af Amer 115 Est GFR (MDRD) Non-Af 95 BUN/Creatinine Ratio 14.8 Glucose 119 H Calcium 8.8 Urine Color Yellow Urine Clarity Sl. Cloudy Urine pH 6.0 Ur Specific Angela 1.020 Urine Protein Negative Urine Glucose (UA) Normal Urine Ketones Negative Urine Occult Blood Negative Urine Nitrite Negative Urine Bilirubin Negative Urine Urobilinogen Normal Ur Leukocyte Esterase 100 H Urine RBC 0 SEEN Urine WBC 10-25 SEEN Ur Squamous Epith Cells 0-5 SEEN Urine Bacteria 0 SEEN Urine Mucus 1+ Medical Necessity - Tobacco Use Smoking Status: Never smoker Assessment/Plan All Active Problems (Last Reviewed 10/18/18 @ 11:16 by Kasie Hammer) Biliary colic (Acute) Cholelithiasis (Acute) Sinusitis, acute (Acute) Severe headache (Acute) Hay fever (Acute) Anemia (Acute) Stomach ulcer (Acute) Diabetes (Acute) 58-year-old female status post laparoscopic cholecystectomy for biliary colic and cholelithiasis 1. Patient is doing well after laparoscopic cholecystectomy. Okay to [place] home. German Torres MD Pager: [facility] [address] [place] [address], [address] [place] [address] Office:
--- NOTE | 2018-12-03 08:57 | DCINST_ITS ---
Discharge Diet: Light diet - advance as tolerated Discharge Activity: Return to Normal Activity, May Not Drive - for 2-3 days or while taking narcotic pain medicataions., May Shower - over bandages Additional Activity Instructions:: Pain medication may cause nausea. You should typically eat light foods as you take your pain medications. Pain medication may also cause constipation. If this is a problem for you, please discuss with your doctor. Call your doctor if your incision/area has: Continuous Slow Oozing, Sudden Increased Bleeding, Increased Pain/ Swelling, Increased Redness, Foul Smelling Discharge, Fever of 101 or Higher Call your doctor if you observe: Fever of 101 or Higher Suture Line Care: Avoid Pulling/Pushing, Avoid Pinching/Bending Additional Dressing/Incision Instructions:: Leave operative bandaids on for 2 days. When you remove dressing, leave Steri-Strips on until your follow-up appointment, or until the Steri-Strips fall off on their own. Instructions: BILIARY COLIC with Gallstone (Confirmed) Allergies/Adverse Reactions: Allergies levofloxacin [From Levaquin] Allergy (Unknown, Verified 11/28/18 03:59) Unknown morphine Allergy (Verified 11/28/18 03:59) Rash Medications to take at Discharge albuterol sulfate HFA 90 mcg/actuation aerosol inhaler 1 puff INHALATION Q6H PRN #8.5 g 05/21/17 loratadine 10 mg tablet 10 mg PO QDAY 05/21/17 Hydrocodone Bitart/Apap 5-325 [[place] 5/325] 1 tab PO Q6H PRN PRN 3 Days #10 tab 11/28/18 Ondansetron [Zofran Odt] 4 mg PO Q8H PRN PRN #10 tab 11/28/18 Oxycodone [Oxyir] 5 - 10 mg PO Q4H PRN PRN 5 Days #20 tablet 12/03/18 The following prescriptions were given: Oxycodone [Oxyir] 5 - 10 mg PO Q4H PRN PRN 5 Days #20 tablet PRN Reason: Pain Score 6-10/10 Transmission Status: Sent to [facility] Primary Care Physician: Sudhir Roblero MD [Primary Care Provider] - Test Results: Test results from this visit will be discussed in further detail at your follow- up appointment, if applicable. Please Follow Up With: German Torres MD When: Please call to schedule 2 week follow up appointment. [phone]
== END 2018-12-03 08:58 | disposition home or self-care (01) ==
LOC: ED 07:06 → PCU 09:52
PROVIDERS: Admitting Provider Surgery; Emergency Provider Emergency Medicine; Family Provider Internal Medicine; PCP Internal Medicine; Visit Provider Surgery
PROC: (CPT 47610; principal; 2018-12-02 14:10)
DX: K80.10 Calculus of gallbladder with chronic cholecystitis without obstruction (principal); K21.9 Gastro-esophageal reflux disease without esophagitis; I10 Essential (primary) hypertension; M19.90 Unspecified osteoarthritis, unspecified site; J45.909 Unspecified asthma, uncomplicated; G62.9 Polyneuropathy, unspecified; E11.9 Type 2 diabetes mellitus without complications; Z79.899 Other long term (current) drug therapy
CPT/HCPCS: 00790; 47563; 36415; 71046; 74300; 76000; 76705; 80048; 80053; 81001; 83690; 85025; 88304; 93005; 96361; 96374; 96375; 99218; 99285; J7030; J7120; A4216; G0378; J2405

== ENCOUNTER → 2019-08-22 15:34 | Outpatient (CLI) | payer OTHER, SELFPAY ==
[2019-08-22 15:10] VITALS: BMI 31.8
[2019-08-22 17:40] LABS: Absolute Lymphocyte Count 1.74 X10^3/uL (0.83-4.51); Basophil# 0.05 X10^3/uL; Basophil% 0.9 % (0-1); Eosinophil# 0.25 X10^3/uL; Eosinophils% 4.6 % (0-5); Hematocrit 40.1 % (37-47); Hemoglobin 12.9 g/dL (12.0-15.0); Lymphocyte # 1.74 X10^3/ul (4.0); Lymphocyte % 32.2 % (19-41); Mean Corp Hgb Conc 32.2 g/dL (32-36); Mean Corpuscular Hgb 29.3 pg (27.0-32.0); Mean Corpuscular Volume 90.9 fL (81-99); Mean Platelet Vol. 11.2 fl (6.2-12.0); Monocyte# 0.35 X10^3/uL; Monocyte% 6.5 % (0-10); NRBC Flagged by Analyzer 0 % (0-5); Neutrophil % 55.4 % (47-70); Platelet Count 318 K/mm3 (150-450); RBC Distribution Width CV 12.9 % (11.6-14.6); RBC Distribution Width SD 42.8 fl (35.1-43.9); Red Blood Count 4.41 M/mm3 (4.2-5.4); White Blood Count 5.4 K/mm3 (4.4-11.0)
[2019-08-22 17:58] LABS: Erythrocyte Sedimentation Rate 16 mm/hr (0-30)
[2019-08-22 18:06] LABS: ALB/GLOB Ratio 1.1 RATIO (0.9-2.4); AST(SGOT) 18 U/L (15-37); Alanine Aminotransfer ALT/SGPT 32 U/L (13-56); Alkaline Phosphatase 104 U/L (45-117); Anion Gap 6 (5-15); BUN 18 mg/dL (7-18); BUN/Creat Ratio 22.8 RATIO (10-20); CRP 8.13 mg/L (0.0-3.0); Calcium,Total 9.9 mg/dL (8.5-10.1); Chloride 106 mmol/L (98-107); Creatinine, Serum 0.79 mg/dL (0.55-1.02); EST Glomerular Filtration Rate 79 mL/min (>60); Est Glom Filt Rate - Afr Amer 96 mL/min (>60); Globulin 3.7 g/dL (2.2-4.2); Glucose 100 mg/dL (74-106); Potassium 4.5 mmol/L (3.5-5.1); Protein, Total 7.7 g/dL (6.4-8.2); Rheumatoid Factor < 10.0 IU/mL (<15); Sodium Level 141 mmol/L (136-145)
== END ==
PROVIDERS: PCP Internal Medicine; Referring Provider Internal Medicine; Visit Provider Internal Medicine
DX: M19.90 Unspecified osteoarthritis, unspecified site (principal); R10.9 Unspecified abdominal pain
CPT/HCPCS: 36415; 80053; 85025; 85652; 86140; 86431

== ENCOUNTER → 2020-10-09 09:37 | Outpatient (CLI) | payer OTHER, SELFPAY ==
[2020-10-09 08:09] VITALS: BMI 32.4
[2020-10-09 12:18] LABS: Erythrocyte Sedimentation Rate 4 mm/hr (0-30)
[2020-10-09 12:24] LABS: Absolute Lymphocyte Count 1.26 X10^3/uL (0.83-4.51); Absolute Neutrophil Count 2.7 X10^3/uL (2.0-7.7); Basophil# 0.04 X10^3/uL; Basophil% 0.9 % (0-1); Eosinophil# 0.11 X10^3/uL; Eosinophils% 2.4 % (0-5); Hematocrit 42.1 % (37-47); Hemoglobin 13.3 g/dL (12.0-15.0); Lymphocyte # 1.26 X10^3/ul (0.83-4.51); Lymphocyte % 27.8 % (19-41); Mean Corp Hgb Conc 31.6 g/dL (32-36); Mean Corpuscular Hgb 29.1 pg (27.0-32.0); Mean Corpuscular Volume 92.1 fL (81-99); Mean Platelet Vol. 10.8 fl (6.2-12.0); Monocyte# 0.42 X10^3/uL; Monocyte% 9.3 % (0-10); NRBC Flagged by Analyzer 0 % (0-5); Neutrophil # 2.69 X10^3/uL (2.7-7.7); Neutrophil % 59.4 % (47-70); Platelet Count 353 K/mm3 (150-450); RBC Distribution Width SD 43.6 fl (35.1-43.9); Red Blood Count 4.57 M/mm3 (4.2-5.4); White Blood Count 4.5 K/mm3 (4.4-11.0)
[2020-10-09 12:30] LABS: Vitamin D,25 Hydroxy 36.9 ng/mL
[2020-10-09 12:44] LABS: ALB/GLOB Ratio 1.1 RATIO (0.9-2.4); AST(SGOT) 15 U/L (15-37); Alanine Aminotransfer ALT/SGPT 34 U/L (13-56); Albumin, Serum 4.3 g/dL (3.2-5.0); Alkaline Phosphatase 101 U/L (45-117); Anion Gap 6 (5-15); BUN 16 mg/dL (7-18); BUN/Creat Ratio 22.1 RATIO (10-20); CRP 7.67 mg/L (0.0-3.0); Calcium,Total 10.1 mg/dL (8.5-10.1); Chloride 105 mmol/L (98-107); Creatinine, Serum 0.72 mg/dL (0.55-1.02); EST Glomerular Filtration Rate 88 mL/min (>60); Est Glom Filt Rate - Afr Amer 106 mL/min (>60); Free T3 2.7 pg/mL (2.18-3.98); Globulin 3.8 g/dL (2.2-4.2); Glucose 103 mg/dL (74-106); Potassium 5.1 mmol/L (3.5-5.1); Protein, Total 8.1 g/dL (6.4-8.2); Rheumatoid Factor < 10.0 IU/mL (<15); Sodium Level 140 mmol/L (136-145); T4 Free Direct 0.87 ng/dL (0.76-1.46); Thyroid Stim Hormone (TSH) 1.23 uIU/mL (0.358-3.74)
[2020-10-09 13:20] LABS: Hemoglobin A1c 5.7 % (3.8-5.6)
[2020-10-10 20:17] LABS: ANTINUCLEAR ANTIBODIES DIRECT Negative (Negative)
== END ==
LOC: BIMLAB 09:38
PROVIDERS: PCP Internal Medicine; Referring Provider Internal Medicine; Visit Provider Internal Medicine
DX: R21 Rash and other nonspecific skin eruption (principal); M25.50 Pain in unspecified joint
CPT/HCPCS: 36415; 80053; 82306; 83036; 84439; 84443; 84481; 85025; 85652; 86038; 86140; 86431

== ENCOUNTER 2021-01-29 12:13 | Outpatient (CLI) | payer OTHER, SELFPAY ==
[2021-01-29 12:21] VITALS: BP 132/74; PULSE 102; RESP 16; TEMP 37; O2SAT 94
[2021-01-29] MEDS: 0.9% Saline Lock 10 ML Syringe IV (12:38)
[2021-01-29 13:10] VITALS: BP 125/68; PULSE 94; RESP 16; TEMP 37.6; O2SAT 95
[2021-01-29 14:04] VITALS: BP 131/69; PULSE 96; RESP 16; TEMP 36.9; O2SAT 95
== END 2021-01-29 14:10 | disposition home or self-care (01) ==
LOC: MS3OUT 12:15 → MS3 12:15
PROVIDERS: PCP Internal Medicine; Referring Provider Nurse Practitioner Adult Health; Visit Provider Nurse Practitioner Adult Health
DX: Z23 Encounter for immunization (principal); U07.1 COVID-19
CPT/HCPCS: J7050; M0245; Q0245; A4216

== ENCOUNTER → 2022-12-18 | Outpatient (CLI) | payer OTHER, SELFPAY ==
[2022-12-18 11:39] LABS: Absolute Lymphocyte Count 2.16 X10^3/uL (0.83-4.51); Absolute Neutrophil Count 4.3 X10^3/uL (2.0-7.7); Basophil# 0.04 X10^3/uL; Basophil% 0.5 % (0-1); Eosinophil# 0.24 X10^3/uL; Eosinophils% 3.2 % (0-5); Hemoglobin 12.2 g/dL (12.0-15.0); Lymphocyte # 2.16 X10^3/ul (0.83-4.51); Lymphocyte % 29.2 % (19-41); Mean Corp Hgb Conc 30.5 g/dL (32-36); Mean Corpuscular Hgb 27.7 pg (27.0-32.0); Mean Corpuscular Volume 90.7 fL (81-99); Mean Platelet Vol. 9.9 fl (6.2-12.0); Monocyte# 0.55 X10^3/uL; Monocyte% 7.4 % (0-10); NRBC Flagged by Analyzer 0 % (0-5); Neutrophil # 4.32 X10^3/uL (2.7-7.7); Neutrophil % 58.6 % (47-70); Platelet Count 466 K/mm3 (150-450); RBC Distribution Width CV 12.8 % (11.6-14.6); RBC Distribution Width SD 42.6 fl (35.1-43.9); Red Blood Count 4.41 M/mm3 (4.2-5.4); White Blood Count 7.4 K/mm3 (4.4-11.0)
[2022-12-18 12:09] LABS: ALB/GLOB Ratio 0.7 RATIO (0.9-2.4); AST(SGOT) 16 U/L (15-37); Alanine Aminotransfer ALT/SGPT 47 U/L (13-56); Albumin, Serum 3.5 g/dL (3.2-5.0); Alkaline Phosphatase 143 U/L (45-117); Anion Gap 6 (5-15); BUN 13 mg/dL (7-18); BUN/Creat Ratio 19.3 RATIO (10-20); Calcium,Total 10.1 mg/dL (8.5-10.1); Chloride 105 mmol/L (98-107); Cholesterol 196 mg/dL (200); Creatinine, Serum 0.67 mg/dL (0.55-1.02); EST Glomerular Filtration Rate 95 mL/min (>60); Est Glom Filt Rate - Afr Amer 114 mL/min (>60); Globulin 4.7 g/dL (2.2-4.2); Glucose 96 mg/dL (74-106); High Density Lipoprotein 77 mg/dL; Potassium 4.2 mmol/L (3.5-5.1); Protein, Total 8.2 g/dL (6.4-8.2); Sodium Level 141 mmol/L (136-145); Thyroid Stim Hormone (TSH) 0.75 uIU/mL (0.358-3.74); Triglycerides 108 mg/dL; Very Low Density Lipoprotein 22 mg/dL (5-40)
== END | disposition home or self-care (01) ==
LOC: LAB 09:58
PROVIDERS: PCP Nurse Practitioner Family; Referring Provider Nurse Practitioner Family; Visit Provider Nurse Practitioner Family
DX: Z00.00 Encounter for general adult medical examination without abnormal findings (principal)
CPT/HCPCS: 36415; 80053; 80061; 84443; 85025

== ENCOUNTER → 2023-01-06 | Outpatient (CLI) | payer OTHER, SELFPAY ==
--- NOTE | 2023-01-06 07:33 | BI_ITS ---
MAMMOGRAPHY - BILATERAL SCREENING REASON FOR EXAM: Female, 62 years old. Routine annual screening examination. PERTINENT HISTORY: Aunt with breast cancer. TECHNIQUE: Digital bilateral breast steve (3D mammographic acquisition) in the CC and MLO projections. 2-D mediolateral oblique (MLO) and craniocaudad (CC) views of both breasts were obtained. CAD: Full Field Digital Mammography with Computer Added Detection was performed. COMPARISON: Comparison is made with prior study December 01, 2012. FINDINGS: Breast Composition: There are scattered areas of fibroglandular density. There are no dominant masses or suspicious calcifications. Stable small benign-appearing bilateral axillary lymph nodes. No other significant abnormalities are identified. There has been no significant change since the prior study. BI/SCRN MAMM (CAD)W/STEVE BILAT IMPRESSION: Stable bilateral screening mammogram. Yearly follow-up mammogram recommended. (A) ASSESSMENT CATEGORY: BIRADS Category 2: Benign. A letter regarding these results will be sent to the patient by the facility within 30 days. Approximately 10% of breast cancers are not detected by mammography. A normal mammogram should not delay biopsy of a clinically suspicious abnormality. [id number] Electronically Signed: Ignacio Jones MD at 9:23 EST ,
== END | disposition home or self-care (01) ==
LOC: OPBI 07:32
PROVIDERS: PCP Nurse Practitioner Family; Referring Provider Nurse Practitioner Family; Visit Provider Nurse Practitioner Family
DX: Z00.00 Encounter for general adult medical examination without abnormal findings (principal); Z12.31 Encounter for screening mammogram for malignant neoplasm of breast; Z80.3 Family history of malignant neoplasm of breast
CPT/HCPCS: 77063; 77067

== ENCOUNTER → 2023-09-27 | Outpatient (CLI) | payer OTHER, SELFPAY ==
[2023-09-27 16:09] LABS: Bacteria 0 SEEN /hpf (None Seen); Mucous, Urine 0 SEEN /hpf (<or=2+); Red Blood Cells-Urine 0 SEEN /hpf (0-5)
[2023-09-27 16:18] LABS: Color, Urine Yellow (Yellow); Glucose, Dipstick Normal (Normal); Ketone-Dipstick Negative (Negative); Leukocyte Esterase-Dipstick 25 /ul (Negative); Nitrite-Dipstick Positive (Negative); Occult Blood-Urine Negative /ul (Negative); Protein-Dipstick Negative (Negative); Specific Gravity, Urine 1.005 (1.002-1.030); Urine Clarity Clear (Clear); Urine Urobilinogen 1 mg/dl (Normal)
[2023-09-27 16:46] LABS: Urine Bilirubin Dipstick 1 mg/dL (Negative)
[2023-09-27 16:48] LABS: Squamous Epithelial Cells - UA 0-5 SEEN /hpf (5-10); White Blood Cells 0-5 SEEN /hpf (0-5)
== END | disposition home or self-care (01) ==
LOC: LABSPEC 15:57
PROVIDERS: Referring Provider Physician Assistant; Visit Provider Physician Assistant
DX: R30.0 Dysuria (principal)
CPT/HCPCS: 81001; 87086

== ENCOUNTER → 2023-12-22 | Outpatient (CLI) | payer OTHER, SELFPAY ==
--- OUTSIDE RECORDS SUMMARY | 2023-12-22 10:49 | XMS RPT_ITS | CCD ---
Author Organization [facility] PRIVACY COMPLIANCE MANAGER [facility] Results Test Name Value Interpretation Reference Range Facil ity HPV W/GENOTYPE THIN PREPon 1 03-06-2022 HPV 16 Ag Ql (Unsp spec) Negative Normal Negative for HPV DNA high risk type 16 by PCR [facility] Comment on above: Order Comment: Speci men Type: FLUID SPECIMEN Ordering Facility: [facility] Address: [address] [place] [address] Performed By: #### H PVHRT #### [facility] CLIA [id number] [address] [place] [address] [place] HPV 18 Ag Ql (Unsp spec) Negative Normal Negative for HPV DNA high risk type 18 by PCR [facility] Comment on above: Order Comment: Speci men Type: FLUID SPECIMEN Ordering Facility: [facility] Address: [address] [place] [address] Performed By: #### H PVHRT #### [facility] CLIA [id number] [address] [place] [address] [place] HPV 31+33+35+39+45+51 +52+56+58+59+66+6 8 DNA HECTOR+probe Ql (Cvx) Negative for HPV DNA high risk types: 31,33,35,39,45,51,52,56 ,58,59,66,68 by PCR. Normal Negative for HPV DNA high risk types: 31,33,35,39,45, 51,52,56,58,59, 66,68 by PCR. [facility] Comment on above: Order Comment: Speci men Type: FLUID SPECIMEN Ordering Facility: [facility] Address: [address] [place] [address] Performed By: #### H PVHRT #### [facility] CLIA [id number] [address] [place] [id number] [place] PAP TESTon 01-04-2023 ADEQUACY Satisfactory for interpretation Normal [facility] Comment on above: Order Comment: Speci men Type: FLUID SPECIMEN Ordering Facility: [facility] Address: [address] [place] [address], [place] [address] Performed By: #### L [id number] #### [facility] CLIA [id number] [facility] [place] [id number] [place] CASE REPORT Normal [facility] Comment on above: Order Comment: Speci men Type: FLUID SPECIMEN Ordering Facility: [facility] Address: [address] [place] [address] Result Comment: Gyne cologic Cytology Report Case: [id number] Authorizing Provider: Doris Potter NP Collected: 01/04/2023 08:30 AM Ordering Location: [facility] Received: 01/06/2023 01:48 PM [facility] First Screen: Florentino, Monse, CT, ASCP Specimen: Pap Test, ThinPrep, Cervix Performed By: #### L [id number] #### [facility] CLIA [id number] [address] [place] [address] [place] CLINICAL HISTORY, CYTOLOGY, FIRMWARE DEVELOPER Routine Exam Normal [facility] Comment on above: Order Comment: Speci men Type: FLUID SPECIMEN Ordering Facility: [facility] Address: [address] [place] [address], [place] [address] Result Comment: Prev ious Pap = 2013 with normal result Performed By: #### L [id number] #### [facility] CLIA [id number] [address] [place] [address] [place] FINAL PERFORMING LAB Normal [facility] Comment on above: Order Comment: Speci men Type: FLUID SPECIMEN Ordering Facility: [facility] Address: [address] [place] [address], [place] [address] Result Comment: Tech nical component, senior technical trainer screening performed at [facility], [facility] [address] CLIA# [id number] Diagnostic interpretation performed at [facility], [address] [place], [place] [id number] CLIA# [id number] Chlorination Operator: Sharif Moraes M.D. Performed By: #### L [id number] #### [facility] CLIA [id number] [address] [place] [address] [place] HPV REFLEX Yes HPV Normal [facility] Comment on above: Order Comment: Speci men Type: FLUID SPECIMEN Ordering Facility: [facility] Address: [address] [place] [address] Performed By: #### L [id number] #### [facility] CLIA [id number] [address] [place] [address] [place] INTERPRETATION, CYTOLOGY, FIRMWARE DEVELOPER Normal [facility] Comment on above: Order Comment: Speci men Type: FLUID SPECIMEN Ordering Facility: [facility] Address: [address] [place] [address] Result Comment: Nega tive for intraepithelial lesion or malignancy. Performed By: #### L [id number] #### [facility] CLIA [id number] [address] [place] [address] [place] LMP [APPROX 1993 Normal [facility] Comment on above: Order Comment: Speci men Type: FLUID SPECIMEN Ordering Facility: [facility] Address: [address] [place] [address] Performed By: #### L [id number] #### [facility] CLIA [id number] [address] [place] [address] [place] PAP DISCLAIMER COMMENT The Pap Smear is a screening test for cervical cancer. False negative results occur with all screening tests, emphasizing the need for rescreening at recommended intervals, and clinical correlation. Normal [facility] Comment on above: Order Comment: Speci matilde Type: FLUID SPECIMEN Ordering Facility: [facility] Address: [address] [place] [address] Performed By: #### L [id number] #### [facility] CLIA [id number] [address] [place] [address] PAP RADIOTELEGRAPH OPERATOR SERVICER COMMENT This specimen has been analyzed by the ThinPrep Imaging System, an automated imaging and review system, which assists the laboratory in evaluating cells on ThinPrep Pap tests. Following automated imaging, selected zambrano from every slide are reviewed by a senior technical trainer. Normal [facility] Comment on above: Order Comment: Denilson clayton Type: FLUID SPECIMEN Ordering Facility: [facility] Address: [address] [place] [address] Performed By: #### L [id number] #### [facility] CLIA [id number] [address] [place] [address] Summary Purpose Family History No Family History Records Found Advance Directives No Advanced Directives Records Found Additional Source Comments INFORMATION SOURCE (unrecogn ized section and content) DATE CREATED AUTHOR 01/09/2023 [facility] FOR RECORDS PERTAINING TO PATIENTS WHO ARE OR HAVE BEEN ENROLLED IN A CHEMICAL DEPENDENCY/SUBSTANCEABUSE PROGRAM, SOME INFORMATION MAY BE OMITTED. This clinical summary was aggregated from multiple sources. Caution should be exercised in using it in the provision of clinical care. This summary normalizes information from multiple sources, and as a consequence, information in this document may materially change the coding, format and clinical context of patient data. In addition, data may be omitted in some cases. CLINICAL DECISIONS SHOULD BE BASED ON THE PRIMARY CLINICAL RECORDS. [employer] provides no warranty or guarantee of the accuracy or completeness of information in this document.
[2023-12-22 13:13] LABS: Absolute Lymphocyte Count 1.52 X10^3/uL (0.83-4.51); Absolute Neutrophil Count 3.2 X10^3/uL (2.0-7.7); Basophil# 0.04 X10^3/uL; Basophil% 0.8 % (0-1); Eosinophil# 0.08 X10^3/uL; Eosinophils% 1.5 % (0-5); Hematocrit 40.7 % (37-47); Hemoglobin 12.7 g/dL (12.0-15.0); Lymphocyte # 1.52 X10^3/ul (0.83-4.51); Lymphocyte % 28.8 % (19-41); Mean Corp Hgb Conc 31.2 g/dL (32-36); Mean Corpuscular Hgb 28.2 pg (27.0-32.0); Mean Corpuscular Volume 90.2 fL (81-99); Mean Platelet Vol. 10.2 fl (6.2-12.0); Monocyte# 0.43 X10^3/uL; Monocyte% 8.2 % (0-10); NRBC Flagged by Analyzer 0 % (0-5); Neutrophil # 3.19 X10^3/uL (2.7-7.7); Neutrophil % 60.5 % (47-70); Platelet Count 340 K/mm3 (150-450); RBC Distribution Width CV 13.2 % (11.6-14.6); RBC Distribution Width SD 43.2 fl (35.1-43.9); Red Blood Count 4.51 M/mm3 (4.2-5.4); White Blood Count 5.3 K/mm3 (4.4-11.0)
[2023-12-22 13:27] LABS: Vitamin B12 361 pg/mL (211-911); Vitamin D,25 Hydroxy 29.9 ng/mL
[2023-12-22 13:46] LABS: ALB/GLOB Ratio 1.1 RATIO (0.9-2.4); AST(SGOT) 21 U/L (15-37); Alanine Aminotransfer ALT/SGPT 31 U/L (13-56); Alkaline Phosphatase 100 U/L (45-117); Anion Gap 5 (5-15); BUN 12 mg/dL (7-18); BUN/Creat Ratio 17.6 RATIO (10-20); Calcium,Total 10.1 mg/dL (8.5-10.1); Chloride 107 mmol/L (98-107); Cholesterol 225 mg/dL (200); Creatinine, Serum 0.68 mg/dL (0.55-1.02); EST Glomerular Filtration Rate 93 mL/min (>60); Est Glom Filt Rate - Afr Amer 112 mL/min (>60); Globulin 3.8 g/dL (2.2-4.2); Glucose 99 mg/dL (74-106); High Density Lipoprotein 89 mg/dL; Potassium 4.7 mmol/L (3.5-5.1); Protein, Total 7.8 g/dL (6.4-8.2); Sodium Level 139 mmol/L (136-145); Thyroid Stim Hormone (TSH) 0.826 uIU/mL (0.358-3.740); Triglycerides 144 mg/dL; Very Low Density Lipoprotein 29 mg/dL (5-40)
== END | disposition home or self-care (01) ==
LOC: VSLAB 10:09
PROVIDERS: PCP Nurse Practitioner Family; Visit Provider Nurse Practitioner Family
DX: Z00.00 Encounter for general adult medical examination without abnormal findings (principal); E56.9 Vitamin deficiency, unspecified
CPT/HCPCS: 36415; 80053; 80061; 82306; 82607; 83036; 84443; 85025